=== PATIENT | female | born 1945 | race Caucasian/White ===

== ENCOUNTER → 2016-04-13 | Outpatient (CLI) | payer OTHER | LOC: RAD 08:39 | DX: M47.812 Spondylosis without myelopathy or radiculopathy, cervical region (principal); M19.012 Primary osteoarthritis, left shoulder; M19.042 Primary osteoarthritis, left hand; M79.645 Pain in left finger(s); M25.512 Pain in left shoulder; M54.2 Cervicalgia ==

== ENCOUNTER → 2018-05-22 | Outpatient (CLI) | payer OTHER ==
--- NOTE | 2018-05-23 11:15 | EKG ---
[address] [address] ELECTROCARDIOGRAM REPORT Name: ZAKIYA JORGENSEN Room #: [facility]#: [id number] ������������������ Admission: 05/22/18 ������������������ Attend Phys: Irvin Harvey MD Discharge: ������������������ Date of : 45 Report #: [id number] ����������������������������������������������������������������� [id number] THIS REPORT FOR: //name// [facility] Test Date: 2018-05-22 Test Time: 11:40:15 Pat Name: ZAKIYA JORGENSEN Department: Room: Gender: F Captain Waiter/Waitress: Jam COFFMAN : 1945 Requested By: Irvin Harvey Order Number: [id number] MD: Pravin South Measurements Intervals [place] Rate: 67 P: 42 CO: 168 QRS: -49 QRSD: 100 T: 13 QT: 429 QTc: 453 Interpretive Statements Sinus rhythm Left axis deviation Poor R-wave progression Nonspecific ST-T wave changes No previous ECG available for comparison Electronically Signed On 05-23-2018 11:15:41 [employer] by Pravin South [email or web address] ��������������������������������������������� <ELECTRONICALLY SIGNED> ���������������������������������������� By: Pravin South MD ��������������������������������������������� 05/23/18 1115 1140 1140 Pravin South MD /[facility]
== END ==
LOC: CV 11:01
DX: Z01.812 Encounter for preprocedural laboratory examination (principal); I10 Essential (primary) hypertension

== ENCOUNTER 2018-06-19 05:29 | Day surgery (SDC) | payer OTHER ==
[~2018-06-19] VITALS: Ht 154.9 cm; Wt 72.6 kg
[~2018-06-19 05:29] MED LIST: ASPIR 8181 MG PO; CALCIUM 600 +1 EAC1 PO; CBD OIL PO; FISH OIL 1,001000 M2 PO; GEMFIBROZIL 60600 MG PO; LOSARTAN POTAS100 MG PO; METAMUCIL PLUS1 EACH PO; PRAVACHOL40 MG PO; STOOL SOFTENER100 MG PO; SYNTHROID88 MCG PO
[2018-06-19 07:38] VITALS: BP 140/85
--- NOTE | 2018-06-23 06:18 | O ---
[facility] [place] [address] OPERATIVE REPORT Name: ZAKIYA JORGENSEN Room #: [facility].#: [id number] Admission: 06/19/18 ������������������ Attend Phys: Irvin Harvey MD Discharge: 06/19/18 ������������������ Date of : 45 Report #: [id number] THIS REPORT FOR: //name// CC: Rickie Jackson DATE OF SERVICE: 06/19/2018 PROSPECT MANAGER: None. PREOPERATIVE DIAGNOSIS: Bilateral upper lid ptosis with superior visual field defects both eyes. POSTOPERATIVE DIAGNOSIS: Bilateral upper lid ptosis with superior visual field defects both eyes. OPERATION PERFORMED: Bilateral upper lid functional ptosis repair. PROSPECT MANAGER: None. ANESTHESIA: Local with IV sedation. COMPLICATIONS: None. INDICATIONS FOR PROCEDURE: This patient has bilateral upper lid ptosis with superior visual field loss both eyes. Visual field testing demonstrates dense superior visual defects. Retesting with the upper lid elevated shows an improvement in visual field loss of over 30% and in excess of 12 degrees. The current procedure is being undertaken in order to improve the patient's visual function. Informed consent was obtained to include but not limited to the risk of loss of vision, bleeding, infection, scarring, failure to improve the problem and need for further surgery, such as adjustment of lid height. DESCRIPTION OF PROCEDURE: The patient was taken to the operating room, where 2% Xylocaine with epinephrine mixed with equal parts of 0.75% Marcaine with Wydase was administered transcutaneously to each upper lid. The patient was then prepped and draped in the usual sterile fashion. An upper lid crease incision was then made bilaterally and the dissection was carried down until the orbital septum was identified. The orbital septum was then cleared and the preaponeurotic fat identified. The levator aponeurosis was then disinserted from the anterior surface of the tarsal plate and dissected free in the avascular Valerio's muscle plane. The aponeurosis was then advanced [facility] [address] [place] [address] OPERATIVE REPORT Name: ZAKIYA JORGENSEN Room #: [facility].#: [id number] Admission: 06/19/18 ������������������ Attend Phys: Irvin Harvey MD Discharge: 06/19/18 ������������������ Date of : 45 Report #: [id number] and reattached to the anterior surface of the tarsal plate with interrupted mattress 6-0 Novafil sutures on each side, adjusting for height and contour. The redundant aponeurosis was then amputated. The incision was then closed with multiple interrupted 6-0 chromic sutures that were used to recreate an upper lid crease. The skin was closed with a running 6-0 plain gut suture. The wound was then cleaned and dressed with ophthalmic antibiotic ointment followed by a Telfa pad. The patient was transported to the recovery area, having tolerated the procedure well with no anesthesia or operative complications being noted. ��������������������������������������������� <ELECTRONICALLY SIGNED> ���������������������������������������� By: Irvin Harvey MD ��������������������������������������������� 06/23/18 0618 0931 1003 Irvin Harvey MD /mary ellen
== END 2018-06-19 10:20 | disposition home or self-care (01) ==
LOC: OR 05:29 → TBA 05:29 → OR 10:20
DX: H02.433 Paralytic ptosis of bilateral eyelids (principal); H53.462 Homonymous bilateral field defects, left side; H53.461 Homonymous bilateral field defects, right side; Z68.30 Body mass index [BMI] 30.0-30.9, adult; I10 Essential (primary) hypertension; E78.00 Pure hypercholesterolemia, unspecified; Z90.710 Acquired absence of both cervix and uterus; Z98.890 Other specified postprocedural states
CPT/HCPCS: 50010; 50101; 50386; 50398; 51636; 56528; 56531; 62110; 62850; 70005

== ENCOUNTER → 2019-02-04 | Outpatient (CLI) | payer OTHER | LOC: RAD 08:22 | DX: M43.16 Spondylolisthesis, lumbar region (principal); M48.061 Spinal stenosis, lumbar region without neurogenic claudication; M43.8X6 Other specified deforming dorsopathies, lumbar region ==